=== PATIENT | male | born 1960 | race Caucasian/White ===

== ENCOUNTER 2021-06-25 12:35 | Emergency (ER) | payer MEDICARE ==
[2021-06-25 13:35] LABS: BASOPHIL 0.1 % (0-2); EOSINOPHIL 0 % (0-5); HCT 26.2 % (42.0-52.0); HGB 8.9 g/dl (13.2-18.0); LYMPHOCYTE 5.1 % (15-48); MCH 29.3 pg (25.0-31.0); MCV 86.2 fL (78.0-100.0); MONOCYTE 6.1 % (0-12); MPV 9.7 fL (6.0-9.5); NEUTROPHIL 86.5 % (41-80); NRBC 0; PLT 517 K/uL (150-400); RBC 3.04 M/uL (4.70-6.00); RDW 15.3 % (11.5-14.0); WBC 16.7 K/uL (4.0-10.5)
[2021-06-25 13:51] LABS: ALBUMIN 1.7 g/dL (3.4-5.0); BILIRUBIN - TOTAL 1.2 mg/dL (0.2-1.0); BUN/CREAT RATIO (CALC) 24.9 RATIO; CREATININE 1.93 mg/dL (0.67-1.17); GLOBULIN (CALCULATION) 4.2 g/dL; LACTIC ACID 0.8 mmol/L (0.4-1.9); POTASSIUM 4.2 mmol/L (3.5-5.1); TOTAL PROTEIN 5.9 g/dL (6.4-8.2)
== END 2021-06-25 19:20 | disposition other institution (70) ==
LOC: FER 12:35
PROVIDERS: Emergency Medicine
DX: A41.9 Sepsis, unspecified organism (principal); E87.1 Hypo-osmolality and hyponatremia; E11.610 Type 2 diabetes mellitus with diabetic neuropathic arthropathy; E11.40 Type 2 diabetes mellitus with diabetic neuropathy, unspecified; E11.22 Type 2 diabetes mellitus with diabetic chronic kidney disease; I12.9 Hypertensive chronic kidney disease with stage 1 through stage 4 chronic kidney disease, or unspecified chronic kidney disease; N18.9 Chronic kidney disease, unspecified; I25.10 Atherosclerotic heart disease of native coronary artery without angina pectoris; Z94.0 Kidney transplant status; Z20.822 Contact with and (suspected) exposure to COVID-19
CPT/HCPCS: 36415; 73630; 80053; 82150; 83605; 84145; 84484; 85025; 87040; 87070; 87077; 87186; 87205; 93005; J2185; J7030; U0002

== ENCOUNTER 2021-10-11 16:48 | Emergency (ER) | payer MEDICARE ==
[2021-10-11] MEDS ORDERED: BACITRACIN15 GM TOP (21:11)
[2021-10-11] MEDS ORDERED: PERCOCET 5-3251 EACH PO (21:11)
== END 2021-10-11 22:07 | disposition home or self-care (01) ==
LOC: FER 16:48
DX: T24.012A Burn of unspecified degree of left thigh, initial encounter (principal); T24.032A Burn of unspecified degree of left lower leg, initial encounter; T25.032A Burn of unspecified degree of left toe(s) (nail), initial encounter; T31.0 Burns involving less than 10% of body surface; I10 Essential (primary) hypertension; E11.9 Type 2 diabetes mellitus without complications; X10.0XXA Contact with hot drinks, initial encounter; Y92.009 Unspecified place in unspecified non-institutional (private) residence as the place of occurrence of the external cause
CPT/HCPCS: 99283

== ENCOUNTER 2022-01-22 21:14 | Emergency (ER) | payer MEDICARE ==
[~2022-01-22 21:14] MED LIST: BACITRACIN15 GM TOP; PERCOCET 5-3251 EACH PO
[2022-01-22] MEDS ORDERED: CLOPIDOGREL75 MG PO (21:42)
[2022-01-22] MEDS ORDERED: PANTOPRAZOLE SO40 MG PO (21:43)
[2022-01-22] MEDS ORDERED: LASIX20 MG PO (21:43)
[2022-01-22] MEDS ORDERED: NIFEDIPINE ER60 MG PO (21:44)
[2022-01-22] MEDS ORDERED: MYCOPHENOLATE500 MG PO (21:44)
[2022-01-22] MEDS ORDERED: NOVOLIN R100 UNIT/1 SC (21:45)
== END 2022-01-22 23:50 | disposition home or self-care (01) ==
LOC: FER 21:14
DX: R04.0 Epistaxis (principal); I25.2 Old myocardial infarction; I25.10 Atherosclerotic heart disease of native coronary artery without angina pectoris; N18.9 Chronic kidney disease, unspecified
CPT/HCPCS: C9046